=== PATIENT | male | born 1970 | race Two or more races ===

== ENCOUNTER 2019-10-03 06:45 | Emergency (ER) | payer SELFPAY ==
[2019-10-03 07:58] LABS: VENOUS BLOOD BASE EXCESS 0.4 mmol/L; VENOUS BLOOD HCO3 26.8 mmol/L (20-32); VENOUS BLOOD PCO2 49.7 mmHg (35-63); VENOUS BLOOD PH 7.35 (7.30-7.42)
[2019-10-03 08:00] LABS: ABSOLUTE EOSINOPHILS # (AUTO) 0.1 10^3/uL (0.0-0.6); ABSOLUTE LYMPHOCYTES (AUTO) 1.8 10^3/uL (0.5-4.7); ABSOLUTE MONOCYTES (AUTO) 0.3 10^3/uL (0.1-1.4); ABSOLUTE NEUT (AUTO) 3.1 10^3/uL (1.7-8.2); APPEARANCE,URINE CLEAR; BASOPHILS % (AUTO) 0.7 % (0-2); BILIRUBIN,URINE NEGATIVE (NEGATIVE); COLOR,URINE STRAW; EOSINOPHILS % (AUTO) 2.1 % (0-6); GLUCOSE, URINE >=500 mg/dL (NEGATIVE); HEMATOCRIT 40.7 % (37.9-51.0); KETONES,URINE NEGATIVE (NEGATIVE); LEUKOCYTE ESTERASE,URINE NEGATIVE (NEGATIVE); LYMPHOCYTES % (AUTO) 33.4 % (13-45); MEAN CORPUSCULAR HEMOGLOBIN 30.7 pg (27.0-33.4); MEAN CORPUSCULAR HGB CONC 34.5 g/dL (32.0-36.0); MEAN CORPUSCULAR VOLUME 89 fl (80-97); MONOCYTES % (AUTO) 5.7 % (3-13); NITRITE,URINE NEGATIVE (NEGATIVE); PLATELET COUNT 305 10^3/uL (150-450); PROTEIN,URINE NEGATIVE (NEGATIVE); RED BLOOD COUNT 4.56 10^6/uL (4.35-5.55); RED CELL DISTRIBUTION WIDTH 13.3 % (11.5-14.0); SEGMENTED NEUTROPHILS % (AUTO) 58.1 % (42-78); TOTAL CELLS COUNTED % (AUTO) 100 %; URINE SPECIFIC GRAVITY 1.029; UROBILINOGEN,URINE NEGATIVE mg/dL (<2.0); WHITE BLOOD COUNT 5.3 10^3/uL (4.0-10.5)
[2019-10-03 08:14] LABS: ALKALINE PHOSPHATASE 109 U/L (38-126); ANION GAP 10 (5-19); ASPARTATE AMINO TRANSFERASE 25 U/L (17-59); BILIRUBIN,TOTAL 0.3 mg/dL (0.2-1.3); BLOOD UREA NITROGEN 13 mg/dL (7-20); CALCIUM 9.3 mg/dL (8.4-10.2); CARBON DIOXIDE 25 mmol/L (22-30); CHLORIDE 98 mmol/L (98-107); POTASSIUM 4.4 mmol/L (3.6-5.0); TOTAL PROTEIN 7.1 g/dL (6.3-8.2)
[2019-10-03] MEDS ORDERED: NORMAL SALINE 1000 ML 1,000 ML IV PRN (08:23)
[2019-10-03 08:24] LABS: GLUCOSE 551 mg/dL (75-110)
[2019-10-03] MEDS ORDERED: METFORMIN HCL 500 MG TABLET PO ONE (09:14)
[2019-10-03] MEDS: NORMAL SALINE 1000 ML 1,000 ML IV PRN ×2 (09:19→10:15)
--- NOTE | 2019-10-03 11:15 | ER Document Report ---
Entered by JOESPH KAUR SCRIBE 10/03/19 0915 Acting as scribe for:KELLY JACKMAN MD ED Blood Sugar Problem - General Chief Complaint: High Blood Sugar Stated Complaint: SUGAR ISSUES Mode of Arrival: Ambulatory Information source: Patient Notes: This 49-year-old somewhat noncompliant type II diabetic male patient presents to the emergency department today with complaints of elevated glucose levels today. Patient states this morning when he woke up his blood sugar was 620, he then pr oceeded to eat "some cake and go to work". Patient states his boss checked his blood sugar when he got to work and it was 555 so he made him come into the ER. Patient states he has not taken his metformin today but he has it in his pocket. Patient states he takes his medicine daily but is quite noncompliant with suggested dietary guidelines. Patient denies any symptoms. Pertinent PMHx/PSHx: Diabetes mellitus type 2, metformin - additional PMHx/PSHx not pertinent to this visit as recorded. TRAVEL OUTSIDE OF THE [place] IN LAST 30 DAYS: No - Related Data Allergies/Adverse Reactions: No Known Allergies Allergy (Unverified 10/03/19 07:01) Home Medications: "pills for my diabetes" Past Medical History - General Information source: Patient - Social History Smoking Status: Current Every Day Smoker Cigarette use (# per day): Yes Frequency of alcohol use: Occasional Drug Abuse: None Occupation: "[employer]" Lives with: Family Family History: Reviewed & Not Pertinent Patient has suicidal ideation: No Patient has homicidal ideation: No Endocrine Medical History: Reports: Hx Diabetes Mellitus Type 2 - Metformin Surgical Hx: Negative Review of Systems - Review of Systems Constitutional: See HPI, Other - elevated BGL. denies: Chills, Fever EENT: No symptoms reported Cardiovascular: No symptoms reported Respiratory: No symptoms reported Gastrointestinal: No symptoms reported Genitourinary: No symptoms reported Male Genitourinary: No symptoms reported Musculoskeletal: No symptoms reported Skin: No symptoms reported Hematologic/Lymphatic: No symptoms reported Neurological/Psychological: No symptoms reported -: Yes All other systems reviewed and negative Physical Exam - Vital signs Vitals: Temp Pulse BP Pulse Ox 97.7 F 91 129/81 H 97 10/03/19 06:52 10/03/19 06:52 10/03/19 06:52 10/03/19 06:52 - Notes Notes: Physical Exam: General: Alert, appears well. HEENT: Normocephalic. Atraumatic. PERRL. Extraocular movements intact. Oropharynx clear. Dry oral mucosa. Neck: Supple. Non-tender. Respiratory: No respiratory distress. Clear and equal breath sounds bilaterally. Cardiovascular: Regular rate and rhythm. Abdominal: Normal Inspection. Non-tender. No distension. Normal Bowel Sounds. Back: No gross abnormalities. Extremities: Moves all four extremities. Upper extremities: Normal inspection. Normal ROM. Lower extremities: Normal inspection. No edema. Normal ROM. Neurological: Normal cognition. AAOx4. Normal speech. Psychological: Normal affect. Normal Mood. Skin: Warm. Dry. Normal color. Course - Re-evaluation Re-evalutation: 10/03/19 11:14 Patient is hemodynamically stable patient is watching something on his cell phone at this time alert showing no signs of distress. Patient's blood sugar is down to 298. - Vital Signs Vital signs: Temp Pulse Resp BP Pulse Ox 97.7 F 91 129/81 H 97 10/03/19 06:52 10/03/19 06:52 10/03/19 06:52 10/03/19 06:52 - Laboratory Result Diagrams: 10/03/19 07:39 10/03/19 07:39 Laboratory results interpreted by me: 10/03/19 10/03/19 10/03/19 07:00 07:36 07:39 Sodium 133.2 L Glucose 551 H* POC Glucose 545 H* 507 H* Urine Glucose (UA) Urine Ascorbic Acid 10/03/19 10/03/19 10/03/19 07:39 08:49 09:25 Sodium Glucose POC Glucose 482 H* 459 H* Urine Glucose (UA) >=500 H Urine Ascorbic Acid 20 H 10/03/19 10:12 Sodium Glucose POC Glucose 349 H Urine Glucose (UA) Urine Ascorbic Acid 10/03/19 11:11 Patient's blood sugar is down to 349 at 1012. Blood sugar is declining with IV fluid hydration. Patient also was given his a.m. dose of metformin. Patient is currently on his third liter of IV fluids and once that is then we will recheck his blood sugar and if below 300 patient will be discharged. Recheck of Accu- Chek at this time shows a blood sugar 298. Discharge - Discharge Clinical Impression: Type 2 diabetes mellitus with hyperglycemia Condition: Stable Disposition: HOME, SELF-CARE Additional Instructions: Diabetes You have an abnormally high blood sugar, suspicious for diabetes. Not all high blood sugar requires long-term treatment. High blood sugar can be due to medications, , or the stress of illness. (These cases are "borderline diabetes.") If the doctor feels your high blood sugar might get better with time, you may not require treatment now. You will be scheduled for further evaluation. It's very important that you follow through. Uncontrolled high blood sugar leads to early heart disease, strokes, nerve damage, eye damage, and kidney damage. All diabetics should follow a diet designed to control the blood sugar. Overweight diabetics should exercise regularly and lose weight. If this is not sufficient to control the blood sugar, pills or insulin shots are necessary. Younger people who develop diabetes almost always require insulin daily. Home testing of blood sugars or urine sugar is required. Diabetic teaching is available to help you figure insulin doses and monitor the blood sugar. Call the physician if there is faintness, excess sleepiness, or very rapid breathing. If hypoglycemia (LOW blood sugar) develops, symptoms are shakiness, weakness, sweating, and confusion. In this case, you should eat or drink something with sugar at once. I personally performed the services described in the documentation, reviewed and edited the documentation which was dictated to the scribe in my presence, and it accurately records my words and actions.
[2019-10-03 11:32] VITALS: BP 142/90
== END 2019-10-03 11:32 | disposition home or self-care (01) ==
LOC: ER 06:45
DX: E11.65 Type 2 diabetes mellitus with hyperglycemia (principal); Z79.84 Long term (current) use of oral hypoglycemic drugs; F17.210 Nicotine dependence, cigarettes, uncomplicated
CPT/HCPCS: 99284; 96360; 96361; 36415; 82962; 85025; 80053; 81001; 82803; J7030